=== PATIENT | female | born 1935 | race Caucasian/White ===

== ENCOUNTER 2020-07-10 16:17 | Inpatient (IN) | payer MEDICARE, OTHER ==
[~2020-07-10] VITALS: Ht 157.5 cm; Wt 69.4 kg
[~2020-07-10 16:17] MED LIST: ALLERCLEAR10 MG PO; AMLODIPINE BESYL5 MG PO; ASPIRIN CHEWABL81 MG PO; LEVAQUIN500 MG PO; PRINIVIL20 MG PO
[2020-07-10 18:06] LABS: BUN/CREAT RATIO (CALC) 32.3 RATIO; CREATININE 0.99 mg/dL (0.51-0.95); POTASSIUM 3.4 mmol/L (3.5-5.1)
[2020-07-10 18:13] LABS: BASOPHIL 0.4 % (0-2); EOSINOPHIL 0.1 % (0-7); HCT 39.3 % (37.0-47.0); HGB 12.4 g/dl (12.5-16.0); LYMPHOCYTE 13.8 % (15-48); MCH 29.4 pg (25.0-31.0); MCHC 31.6 g/dL (32.0-36.0); MCV 93.1 fL (78.0-100.0); MONOCYTE 5.8 % (0-12); MPV 10.5 fL (6.0-9.5); NEUTROPHIL 79.1 % (41-80); NRBC 0; PLT 318 K/uL (150-400); RBC 4.22 M/uL (4.20-5.40); RDW 14.3 % (11.5-14.0); WBC 19.9 K/uL (4.0-10.5)
[2020-07-10 18:51] LABS: BILIRUBIN NEGATIVE (NEGATIVE); BLOOD NEGATIVE Ery/uL (NEGATIVE); CLARITY CLEAR (CLEAR); COLOR YELLOW (YELLOW); GLUCOSE (U) NORMAL (NORMAL); LEUKOCYTES NEGATIVE Leu/uL (NEGATIVE); NITRITE NEGATIVE (NEGATIVE); PROTEIN NEGATIVE (NEGATIVE); SPECIFIC GRAVITY 1.025 (1.001-1.030); UROBILINOGEN 0.2 mg/dL (0.2-1.0); pH 5.5 (5.0-9.0)
[2020-07-10 19:29] LABS: INR 1.03 (0.9-1.2); PROTHROMBIN TIME 12.8 SECONDS (11.4-13.6)
[2020-07-10 21:34] LABS: BASOPHIL 0.2 % (0-2); EOSINOPHIL 0.1 % (0-7); HCT 37.4 % (37.0-47.0); LYMPHOCYTE 8.5 % (15-48); MCH 29.6 pg (25.0-31.0); MCHC 32.1 g/dL (32.0-36.0); MCV 92.1 fL (78.0-100.0); MONOCYTE 6.6 % (0-12); MPV 10.2 fL (6.0-9.5); NEUTROPHIL 84.1 % (41-80); NRBC 0; PLT 288 K/uL (150-400); RBC 4.06 M/uL (4.20-5.40); RDW 14.3 % (11.5-14.0); WBC 19.8 K/uL (4.0-10.5)
[2020-07-10 22:09] LABS: BUN/CREAT RATIO (CALC) 32.9 RATIO; CREATININE 0.82 mg/dL (0.51-0.95)
[2020-07-10 23:36] LABS: BILIRUBIN NEGATIVE (NEGATIVE); BLOOD NEGATIVE Ery/uL (NEGATIVE); CLARITY CLEAR (CLEAR); COLOR YELLOW (YELLOW); GLUCOSE (U) NORMAL (NORMAL); LEUKOCYTES NEGATIVE Leu/uL (NEGATIVE); NITRITE NEGATIVE (NEGATIVE); PROTEIN NEGATIVE (NEGATIVE); SPECIFIC GRAVITY 1.015 (1.001-1.030); UROBILINOGEN 0.2 mg/dL (0.2-1.0)
[2020-07-11 05:33] LABS: BASOPHIL 0.2 % (0-2); EOSINOPHIL 0 % (0-7); HCT 32.5 % (37.0-47.0); HGB 10.7 g/dl (12.5-16.0); LYMPHOCYTE 8.2 % (15-48); MCHC 32.9 g/dL (32.0-36.0); MONOCYTE 5.3 % (0-12); MPV 10.2 fL (6.0-9.5); PLT 250 K/uL (150-400); RBC 3.57 M/uL (4.20-5.40); RDW 14.3 % (11.5-14.0); WBC 17.4 K/uL (4.0-10.5)
[2020-07-11 06:57] LABS: BUN 25 mg/dL (7-18); CHLORIDE 106 mmol/L (98-107); CO2 (BICARBONATE) 26 mmol/L (21-32); CREATININE 0.81 mg/dL (0.51-0.95); GLUCOSE 162 mg/dL (74-106); POTASSIUM 4.1 mmol/L (3.5-5.1)
[2020-07-11 06:58] LABS: ALBUMIN 2.6 g/dL (3.4-5.0); ALKALINE PHOSHATASE 77 U/L (46-116); ALT <6 U/L (14-59); AST 114 U/L (15-37); BILIRUBIN - TOTAL 0.6 mg/dL (0.2-1.0); GLOBULIN (CALCULATION) 2.7 g/dL; TOTAL PROTEIN 5.3 g/dL (6.4-8.2)
[2020-07-11 07:12] LABS: BAND 14 % (0-10); LYMPHOCYTE(M) 8 % (15-48); METAMYELOCYTE 1; MONOCYTE(M) 7 % (0-12); NEUTROPHILS(M) 70 % (41-80); NRBC 0; PLATELET ESTIMATE NORMAL; PLATELET MORPHOLOGY NORMAL; TOTAL CELL COUNT 100
--- NOTE | 2020-07-11 11:04 | NUR ---
PT REPORTS SHE LIVES WITH SPOUSE AND IS INDEPENDENT AT HOME; PLEASE ADVISE OF DISCHARGE NEEDS
--- NOTE | 2020-07-11 11:22 | NUR ---
PT NG ACCIDENTALLY PULLED OUT THIS AM BEFORE DAYSHIFT. DR MAIN NOTIFIED AND STATED HE WILL BY TODAY TO SEE PT, JUST KEEP PT NPO AT THIS TIME.
[2020-07-11 20:36] LABS: RETICULOCYTE COUNT 1.3 % (1.0-2.0)
[2020-07-11 20:45] LABS: IRON % SATURATION 6.2 %SAT (20-50)
[2020-07-11 21:12] LABS: FOLIC ACID (SERUM) 14.2 ng/mL (8.6-58.9)
[2020-07-12 06:30] LABS: BASOPHIL 0.4 % (0-2); EOSINOPHIL 0.4 % (0-7); HCT 33.1 % (37.0-47.0); HGB 10.3 g/dl (12.5-16.0); MCH 29.1 pg (25.0-31.0); MCHC 31.1 g/dL (32.0-36.0); MCV 93.5 fL (78.0-100.0); MONOCYTE 4.8 % (0-12); MPV 10.9 fL (6.0-9.5); NEUTROPHIL 83.9 % (41-80); NRBC 0; PLT 248 K/uL (150-400); RBC 3.54 M/uL (4.20-5.40); RDW 14.4 % (11.5-14.0); WBC 16.1 K/uL (4.0-10.5)
[2020-07-12 06:48] LABS: ALBUMIN 2.2 g/dL (3.4-5.0); BILIRUBIN - TOTAL 0.5 mg/dL (0.2-1.0); BUN/CREAT RATIO (CALC) 21.1 RATIO; CREATININE 0.76 mg/dL (0.51-0.95); GLOBULIN (CALCULATION) 3.3 g/dL; MAGNESIUM 1.5 mg/dL (1.8-2.4); PHOSPHORUS 2.4 mg/dL (2.6-4.7); POTASSIUM 4.2 mmol/L (3.5-5.1); TOTAL PROTEIN 5.5 g/dL (6.4-8.2)
--- NOTE | 2020-07-12 14:15 | NUR ---
F/C D/'D WITH TIP INTACT PER DR. MAIN ORDER. PT VOICES UNDERSTANDING OF USE OF CALL LIGHT IF NEEDS TO VOID.
[2020-07-13 06:23] LABS: BASOPHIL 0.2 % (0-2); EOSINOPHIL 1.2 % (0-7); HGB 10.8 g/dl (12.5-16.0); LYMPHOCYTE 10.8 % (15-48); MCH 29.1 pg (25.0-31.0); MCHC 31.8 g/dL (32.0-36.0); MCV 91.6 fL (78.0-100.0); MPV 10.5 fL (6.0-9.5); NRBC 0; PLT 253 K/uL (150-400); RBC 3.71 M/uL (4.20-5.40); RDW 14.1 % (11.5-14.0); WBC 13.7 K/uL (4.0-10.5)
[2020-07-13 06:48] LABS: BUN/CREAT RATIO (CALC) 18.6 RATIO; CREATININE 0.7 mg/dL (0.51-0.95); MAGNESIUM 1.7 mg/dL (1.8-2.4); PHOSPHORUS 1.7 mg/dL (2.6-4.7)
--- NOTE | 2020-07-13 15:54 | NUR ---
RD discussed patient's NPO status with MD Mejia; awaiting GI function to resume; hopeful to start nutrition with oral diet soon. BS hypoactive per nursing assessment. will follow POC.
[2020-07-14 06:01] LABS: BASOPHIL 0.4 % (0-2); HCT 30.3 % (37.0-47.0); LYMPHOCYTE 15.5 % (15-48); MCH 30.3 pg (25.0-31.0); MCV 91.8 fL (78.0-100.0); MONOCYTE 6.6 % (0-12); MPV 10.4 fL (6.0-9.5); NEUTROPHIL 73.4 % (41-80); NRBC 0; PLT 261 K/uL (150-400); RETICULOCYTE COUNT 1.4 % (1.0-2.0)
[2020-07-14 06:20] LABS: IRON % SATURATION 17.3 %SAT (20-50)
[2020-07-14 06:44] LABS: BUN/CREAT RATIO (CALC) 16.2 RATIO; CREATININE 0.74 mg/dL (0.51-0.95); FOLIC ACID (SERUM) 14.7 ng/mL (8.6-58.9); MAGNESIUM 1.9 mg/dL (1.8-2.4); PHOSPHORUS 2.3 mg/dL (2.6-4.7); POTASSIUM 3.8 mmol/L (3.5-5.1)
--- NOTE | 2020-07-14 15:37 | NUR ---
PT TRANSFERRED TO MED/SUR[facility] (ROOM #217) VIA WHEELCHAIR @ 1434 W/ ALL BELONGINGS; W/ PATIENT; NO ISSUES; CARE TRANSFERRED TO [facility]
[2020-07-15 03:58] LABS: BASOPHIL 0.8 % (0-2); EOSINOPHIL 2.5 % (0-7); HGB 10.5 g/dl (12.5-16.0); LYMPHOCYTE 20.6 % (15-48); MCH 29.9 pg (25.0-31.0); MCHC 32.8 g/dL (32.0-36.0); MCV 91.2 fL (78.0-100.0); MONOCYTE 8.6 % (0-12); MPV 10.3 fL (6.0-9.5); NRBC 0; PLT 281 K/uL (150-400); RBC 3.51 M/uL (4.20-5.40); RDW 13.8 % (11.5-14.0); WBC 9.4 K/uL (4.0-10.5)
[2020-07-15 04:24] LABS: CREATININE 0.75 mg/dL (0.51-0.95); MAGNESIUM 1.6 mg/dL (1.8-2.4); PHOSPHORUS 3.2 mg/dL (2.6-4.7); POTASSIUM 3.5 mmol/L (3.5-5.1)
--- NOTE | 2020-07-15 04:34 | NUR ---
PHARMACY CALLED AND REPORTED VANC TROUGH LEVEL, OK TO GIVE DOSE TONIGHT AND IN HOUSE PHARMACY WILL ADJUST NEXT DOSE. VANC TROUGH AND BMP RESULTS FAXED TO PHARMACY
[2020-07-16 04:44] LABS: EOSINOPHIL 2.4 % (0-7); HCT 33.1 % (37.0-47.0); HGB 10.7 g/dl (12.5-16.0); LYMPHOCYTE 15.6 % (15-48); MCH 29.3 pg (25.0-31.0); MCHC 32.3 g/dL (32.0-36.0); MCV 90.7 fL (78.0-100.0); MONOCYTE 8.5 % (0-12); NEUTROPHIL 69.3 % (41-80); NRBC 0.2; PLT 283 K/uL (150-400); RBC 3.65 M/uL (4.20-5.40); RDW 13.8 % (11.5-14.0); WBC 11.5 K/uL (4.0-10.5)
[2020-07-16 05:00] LABS: BUN/CREAT RATIO (CALC) 16.5 RATIO; CREATININE 0.79 mg/dL (0.51-0.95); POTASSIUM 3.9 mmol/L (3.5-5.1)
[2020-07-16 05:01] LABS: MAGNESIUM 2.3 mg/dL (1.8-2.4)
--- NOTE | 2020-07-16 06:24 | NUR ---
EDUCATED ON [place] DRAIN C[facility], SHOWN HOW TO EMPTY, MEASURE, COMPRESS AND CLOSE DRAIN AND WAS ABLE TO REPEAT INSTRUCTIONS BACK
[2020-07-16] MEDS ORDERED: PERCOCET 5-3251 EACH PO (09:54)
--- NOTE | 2020-07-16 11:09 | NUR ---
PATIENT IN STABLE CONDITION. IV REMOVED PRIOR TO DISCHARGE. DISCUSSED DISCHARGE INSTRUCTIONS WITH PATIENT AND . EDUCATED ON DRAIN AND EMPTYING DRAIN. D/C HOME WITH HOME HEALTH AND WITH SPOUSE
[2020-09-19] MEDS ORDERED: DAILY VALUE1 EACH PO (08:16)
== END 2020-07-16 10:50 | disposition home or self-care (01) | DRG 853 ==
LOC: FER 16:17 → FOR 21:28 → FTCU 23:55 → FMS 07-14 12:47
PROVIDERS: Allergy & Immunology; Nurse Practitioner Family; Student in an Organized Health Care Education/Training Program; ADMIT Internal Medicine
PROC: 0DBH0ZZ Excision of Cecum, Open Approach (ICD-10-PCS; principal; 2020-07-10 22:10)
DX: A41.9 Sepsis, unspecified organism (principal); K55.049 Acute infarction of large intestine, extent unspecified; E87.2 Acidosis; R65.20 Severe sepsis without septic shock; G89.29 Other chronic pain; M54.5 Low back pain; E78.5 Hyperlipidemia, unspecified; I10 Essential (primary) hypertension; I73.9 Peripheral vascular disease, unspecified; D50.9 Iron deficiency anemia, unspecified; E83.42 Hypomagnesemia; Z90.710 Acquired absence of both cervix and uterus; Z90.49 Acquired absence of other specified parts of digestive tract; Z98.890 Other specified postprocedural states; Z79.82 Long term (current) use of aspirin; Z88.1 Allergy status to other antibiotic agents; R32 Unspecified urinary incontinence
CPT/HCPCS: 36415; 72193; 80048; 80053; 80202; 81003; 82607; 82746; 83540; 83550; 83605; 83735; 84100; 85025; 85610; 87040; 87077; 93005; 94010; 97110; 97116; 97162; 97166; 97530-GP; 97535; J0743; J1170; J1644; J1885; J2250; J2405; J2543; J2704; J2710; J2916; J3010; J3370; J3475; J3480; J7030; J7050; J7120; Q9967; U0002

== ENCOUNTER → 2020-09-22 | Day surgery (SDC) | payer MEDICARE, OTHER ==
[~2020-09-22] MED LIST changes: +DAILY VALUE1 EACH PO; +PERCOCET 5-3251 EACH PO
== END | disposition home or self-care (01) ==
LOC: FAS 06:14
DX: K64.8 Other hemorrhoids (principal); K55.8 Other vascular disorders of intestine; E78.5 Hyperlipidemia, unspecified; I10 Essential (primary) hypertension; Z20.822 Contact with and (suspected) exposure to COVID-19; Z88.1 Allergy status to other antibiotic agents; Z79.899 Other long term (current) drug therapy; Z86.010 Personal history of colon polyps; Z87.19 Personal history of other diseases of the digestive system; Z90.49 Acquired absence of other specified parts of digestive tract; Z98.890 Other specified postprocedural states; Z98.0 Intestinal bypass and anastomosis status
CPT/HCPCS: J2704; J7120